=== PATIENT | female | born 1950 | race Caucasian/White ===

== ENCOUNTER 2017-02-17 16:45 | Observation (INO) ==
[2017-02-17] MEDS ORDERED: Nitroglycerin 0.4 MG TAB.SUBL SL ONE (17:01)
--- NOTE | 2017-02-17 17:06 | Emergency Department Note ---
Disposition Clinical Impression: Chest pain Qualifiers: Chest pain type: unspecified Qualified Code(s): R07.9 - Chest pain, unspecified Disposition: Admitted As Inpatient Condition: Fair Forms: ED Satisfaction Letter Time of Disposition: 18:08 Chest Pain HPI - General Chief Complaint: ED Chest Pain Stated Complaint: CP Source: patient Limitations: no limitations Vital Signs Reviewed: Yes Nursing Notes Reviewed: Yes - History of Present Illness HPI Narrative: 66-year-old female past medical history of mitral infarction but is in the emergency department with right-sided neck pain that started at 9 AM today. Patient was not exerting herself with began. Patient does state that last night she was having bilateral arm pain. Patient denies any nausea or diaphoresis. Patient states that the pain cycles every minute and starts in her neck and radiates downward. Severity scale (1-10): 6 - Related Data Home Medications Medication Instructions Recorded Confirmed Acetaminophen [Tylenol] 500 mg PO Q6H PRN 02/17/17 02/17/17 Calcium Carbonate [Calcium] 1,200 mg PO BID 02/17/17 02/17/17 Carvedilol [Carvedilol] 3.125 mg PO BID 02/17/17 02/17/17 Clopidogrel [Plavix] 75 mg PO DAILY 02/17/17 02/17/17 Losartan/HCTZ [Hyzaar 50-12.5 1 each PO DAILY 02/17/17 02/17/17 Tablet] Multivit with Calcium,Iron,Min 1 each PO DAILY 02/17/17 02/17/17 [One Daily Women's] amLODIPine [Norvasc] 5 mg PO DAILY 02/17/17 02/17/17 Allergies Allergy/AdvReac Type Severity Reaction Status Date / Time aspirin Allergy Anaphylaxis Verified 07/02/15 17:50 Penicillins Allergy Anaphylaxis Verified 07/02/15 17:50 levofloxacin [From Levaquin] AdvReac See Verified 07/02/15 17:50 Comments All systems ED: reviewed and negative except as stated. Review of Systems: As Per HPI Constitutional: Denies: fever Cardiovascular: Denies: chest pain Respiratory: Denies: cough, dyspnea Gastrointestinal: Denies: abdominal pain, nausea, vomiting Musculoskeletal: Reports: neck pain Integumentary: Denies: rash Neurological: Denies: headache, numbness, paresthesias Chest Pain PMH - Past Medical History Medical history: Reports: COPD, hypertension, myocardial infarction Psychiatric history: Reports: no psych history [employer] REPA[employer]ER history: Reports: no [employer]BI[employer] REPA[employer]ER history - Social History Smoking Status: Current every day smoker Alcohol use: Reports: none Drug use: Reports: none Physical Exam General: Well Appearing, in no acute distress Head: autraumatic, EOMI, no conjuncitval pallor, no scleral icterus, Mouth: oral mucous membranes moist Neck: neck soft, trachea midline Chest:: Equal chest wall rise Lungs: Normal lungs sounds bilaterally, no wheezes, no respiratory distress Heart: normal heart sounds, normal rate and rhythm, Abdomen: soft, non-tender, no rigidity, no guarding, no rebdound tenderness Lower Extremities: no pedal edema, calves non-tender Integumentary: Skin warm, dry, and intact Neuro: Alert Psych: normal affect, normal mood - General Limitations: no limitations General appearance: alert, in no apparent distress Course Vital Signs Temperature 97.7 F 02/17/17 16:46 Pulse Rate 75 02/17/17 16:46 Respiratory Rate 16 02/17/17 16:46 Blood Pressure 178/89 02/17/17 16:46 O2 Sat by Pulse Oximetry 98 02/17/17 16:46 Temperature 97.7 F 02/17/17 16:46 Pulse Rate 60 02/17/17 17:49 Respiratory Rate 25 02/17/17 17:49 Blood Pressure 150/79 02/17/17 17:49 O2 Sat by Pulse Oximetry 95 02/17/17 17:49 Oxygen Delivery Oxygen Delivery Room Air Chest Pain - MDM Narrative Medical decision making narrative: 66-year-old female with previous history of hypertension, hyperlipidemia, smoker , and myocardial infarction and stent placement in the RCA arrives at the emergency department with 8 hour history of pain radiating through her neck on the right side. Due to patient's previous history of myocardial infarction and stent placement, there is concern for acute coronary syndrome. Electrocardiogram reveals nonspecific ST changes. Patient is mildly hypertensive here. We will administer sublingual nitroglycerin to see if this helps resolve her chest pain. We will also obtain a troponin, chest x-ray, CBC , BMP. Patient's chest x-ray is normal. Troponin is negative. Patient was offered aspirin, but has a known anaphylactic response to it. Patient currently takes Plavix every day and has had her dose this morning already. The patient was administered 0.4 mg sublingual nitroglycerin, which resolved her chest pain completely. Patient was offered admission to the hospital as she has a heart score is 6 and she was willing to come in. I spoke with the hospitalist on the phone and he agreed to accept the admission. Patient's family was at bedside as well. Patient was hemodynamically stable and not in any acute distress at time of admission. Initial blood pressure was 178/89. This dropped after nitroglycerin administration to 165/85. Vital Signs Temperature 97.7 F 02/17/17 16:46 Pulse Rate 75 02/17/17 16:46 Respiratory Rate 16 02/17/17 16:46 Blood Pressure 178/89 02/17/17 16:46 O2 Sat by Pulse Oximetry 98 02/17/17 16:46 Temperature 97.7 F 02/17/17 16:46 Pulse Rate 75 02/17/17 16:46 Respiratory Rate 16 02/17/17 16:46 Blood Pressure 165/85 02/17/17 17:09 O2 Sat by Pulse Oximetry 98 02/17/17 16:46 Oxygen Delivery Oxygen Delivery Room Air Chest X-Ray 02/17/17 17:01 IMPRESSION: Cardiomegaly with COPD. D/ / 02/17/2017 17:34:12 Wesley Cedeño MD / [facility] Interpreting Provider: Wesley Cedeño MD - Medical Records Medical records reviewed: Yes I reviewed the patient's medical records. - Lab Data Lab results reviewed: Yes I reviewed the patient's lab results. Result diagrams: 02/17/17 17:23 02/17/17 17:23 Lab Results 02/17/17 02/17/17 02/17/17 Range/Units 17:23 17:23 17:23 WBC 7.0 (4.3-11.1) K/mcL RBC 4.51 (3.82-4.97) M/mcL Hgb 13.9 (11.5-15.4) g/dL Hct 42.2 (35.3-44.9) % MCV 93.6 (83.0-100.0) fL MCH 30.8 (28.0-33.3) pg MCHC 32.9 (31.6-35.5) g/dL RDW 13.5 (11.5-14.5) % Plt Count 205 (140-400) K/mcL MPV 10.2 (9.4-12.4) fL Immature Gran % 1.4 (0-4) % Seg Neutrophils % 47.0 % Lymphocytes % 36.5 % Monocytes % 10.8 % Eosinophils % 3.6 % Basophils % 0.7 % Neutrophils # 3.3 (1.6-8.9) K/mcL Lymphocytes # 2.5 (0.6-4.6) K/mcL Monocytes # 0.8 (0.0-1.3) K/mcL Eosinophils # 0.3 (0.0-0.6) K/mcL Basophils # 0.1 (0.0-0.2) K/mcL PT 9.9 (9.4-12.1) Seconds INR 0.9 APTT 31.4 (26.0-36.0) Seconds Sodium (136-145) mEq/L Potassium (3.5-4.5) mEq/L Chloride (98-109) mEq/L Carbon Dioxide (19-29) mEq/L BUN (7-20) mg/dL Creatinine (0.57-1.11) mg/dL Est GFR ( Amer) (> 60) Est GFR (Non-Af Amer) (> 60) BUN/Creatinine Ratio (6-26) Glucose (70-99) mg/dL Calculated Osmolality (280-300) Calcium (8.6-10.8) mg/dL Troponin I (0-0.03) ng/mL B-Natriuretic Peptide 35 (0-100) pg/mL 02/17/17 02/17/17 Range/Units 17:23 17:23 WBC (4.3-11.1) K/mcL RBC (3.82-4.97) M/mcL Hgb (11.5-15.4) g/dL Hct (35.3-44.9) % MCV (83.0-100.0) fL MCH (28.0-33.3) pg MCHC (31.6-35.5) g/dL RDW (11.5-14.5) % Plt Count (140-400) K/mcL MPV (9.4-12.4) fL Immature Gran % (0-4) % Seg Neutrophils % % Lymphocytes % % Monocytes % % Eosinophils % % Basophils % % Neutrophils # (1.6-8.9) K/mcL Lymphocytes # (0.6-4.6) K/mcL Monocytes # (0.0-1.3) K/mcL Eosinophils # (0.0-0.6) K/mcL Basophils # (0.0-0.2) K/mcL PT (9.4-12.1) Seconds INR APTT (26.0-36.0) Seconds Sodium 140 (136-145) mEq/L Potassium 4.1 (3.5-4.5) mEq/L Chloride 103 (98-109) mEq/L Carbon Dioxide 27 (19-29) mEq/L BUN 15 (7-20) mg/dL Creatinine 1.01 (0.57-1.11) mg/dL Est GFR ( Amer) > 60 (> 60) Est GFR (Non-Af Amer) 55 L (> 60) BUN/Creatinine Ratio 15 (6-26) Glucose 106 H (70-99) mg/dL Calculated Osmolality 291 (280-300) Calcium 9.9 (8.6-10.8) mg/dL Troponin I 0.00 (0-0.03) ng/mL B-Natriuretic Peptide (0-100) pg/mL - Radiology Data Radiology results reviewed: Yes I reviewed the patient's radiology results. - EKG Data EKG attestation: Yes I reviewed and interpreted this EKG. EKG results narrative: 16:50 Ventricular rate 60 bpm, CO interval 154 ms, QRS duration 146 ms, QT 414 ms, QTC 432 ms, normal axis. Sinus rhythm with a ventricular rate of 60 bpm. There is a right bundle branch block. New T-wave inversions in the septal leads. T-wave flattening in V5 and V6. This is new from an electrocardiogram performed on June 11, 2016. Heart Score - Score History: Moderately Suspicious EKG: Non Specific repolarisation Disturbance Age: Greater than 65 Risk Factors: Equal/Greater than 3 risk factor or history of atherosclerotic disease Troponin: Less than normal limit HEART Score Total: 6
[2017-02-17] MEDS ORDERED: 0.9 % Sodium Chloride 1,000 ML IVC ONE (17:10)
[2017-02-17 17:33] LABS: Basophils # 0.1 K/mcL (0.0-0.2); Basophils % 0.7 %; Eosinophils # 0.3 K/mcL (0.0-0.6); Eosinophils % 3.6 %; Hematocrit 42.2 % (35.3-44.9); Hemoglobin 13.9 g/dL (11.5-15.4); Immature Granulocytes % 1.4 % (0-4); Lymphocytes # 2.5 K/mcL (0.6-4.6); Lymphocytes % 36.5 %; Mean Corpuscular HGB Conc 32.9 g/dL (31.6-35.5); Mean Corpuscular Hemoglobin 30.8 pg (28.0-33.3); Mean Corpuscular Volume 93.6 fL (83.0-100.0); Mean Platelet Volume 10.2 fL (9.4-12.4); Monocytes # 0.8 K/mcL (0.0-1.3); Monocytes % 10.8 %; Neutrophils # 3.3 K/mcL (1.6-8.9); Platelet Count 205 K/mcL (140-400); Red Blood Count 4.51 M/mcL (3.82-4.97); Red Cell Distribution Width 13.5 % (11.5-14.5)
[2017-02-17 17:39] LABS: INR 0.9; Prothrombin Time 9.9 Seconds (9.4-12.1)
[2017-02-17 17:42] LABS: Activated Partial Thrombo Time 31.4 Seconds (26.0-36.0)
--- NOTE | 2017-02-17 17:43 | Emergency Department Note ---
START Narrative - START START: I examined this patient and my medical decision-making was reviewed with the Resident Physician. I agree with the documented findings, disposition and treatment plan as described except to the extent set forth below. 66 yo F here for chest pain hx of one stent +CAD nitro helped with pain. plan to admit ekg is ok cxr neg labs stable
[2017-02-17 17:46] LABS: BUN/Creatinine Ratio 15 (6-26); Blood Urea Nitrogen 15 mg/dL (7-20); Calcium 9.9 mg/dL (8.6-10.8); Carbon Dioxide 27 mEq/L (19-29); Chloride 103 mEq/L (98-109); Glucose 106 mg/dL (70-99); Osmolality,Calculated 291 (280-300); Potassium 4.1 mEq/L (3.5-4.5); Sodium 140 mEq/L (136-145); eGFR For African Americans > 60 (> 60); eGFR For Non-African Americans 55 (> 60)
[2017-02-17] MEDS ORDERED: Acetaminophen 325 MG TABLET PO PRN (20:36)
[2017-02-17] MEDS ORDERED: Ondansetron 4 MG/2 ML VIAL IVP PRN (20:36)
[2017-02-17] MEDS ORDERED: Naloxone 0.4 MG/ML INJ IVP PRN (20:36)
[2017-02-17] MEDS ORDERED: *HR* Morphine 2 MG/ML SYRINGE IVP PRN (20:36)
[2017-02-17] MEDS ORDERED: Nitroglycerin 0.4 MG TAB.SUBL SL PRN (20:39)
[2017-02-17] MEDS ORDERED: Ipratropium/Albuterol Neb 3 ML IH PRN ×2 (20:39→20:50)
--- NOTE | 2017-02-17 20:42 | Internal Med History&Physical ---
Date of Encounter: 02/17/17 Time of Encounter: 20:39 Assessment and Plan (1) Chest pain Current visit: Yes Status: Acute Order stress test, monitor troponins, continue telemetry Consider cardiology consult if the stress test is abnormal, continue Plavix, hold carvedilol for stress test Allergic to aspirin Nitroglycerin and morphine for pain Check lipid panel in the morning Omeprazole for GI prophylaxis and Lovenox for DVT prophylaxis. The patient will be admitted for observation. Full code. Time spent on this admission 40 minutes. Qualifiers: Chest pain type: unspecified Qualified Code(s): R07.9 - Chest pain, unspecified (2) Hypertension Current visit: Yes Status: Acute Continue home meds May start hydralazine IV as needed Qualifiers: Hypertension type: essential hypertension Qualified Code(s): I10 - Essential (primary) hypertension (3) CAD (coronary artery disease) Current visit: Yes Status: Acute Continue Plavix Qualifiers: Coronary Disease-Associated Artery/Lesion type: [place] artery [place] vs. transplanted heart: [place] heart Associated angina: angina presence unspecified Qualified Code(s): I25.10 - Atherosclerotic heart disease of [place] coronary artery without angina pectoris (4) COPD (chronic obstructive pulmonary disease) Current visit: Yes Status: Acute DuoNeb nebs as needed Qualifiers: COPD type: unspecified COPD Qualified Code(s): J44.9 - Chronic obstructive pulmonary disease, unspecified (5) Tobacco abuse Current visit: Yes Status: Acute Smoking cessation counseling given for 5 minutes, nicotine patch ordered Internal Medicine - H&P: HPI Chief complaint: Chest pain Admitted From: Emergency Dept History of present illness: Ms. Rodríguez is a 66 year old female with a past medical history of CAD status post stents, hypertension, COPD not oxygen dependent and tobacco use who came to the emergency room complaining of chest pain that started on the right side of her neck approximately 9 AM she was at rest. Initially, it was a 6 out of 10 and improved with the use of nitroglycerin, the discomfort is still present she says it is not completely similar to the prior cardiac event that she had before. It comes in cycles every minute. EKG shows a prior right bundle branch block, chest x-ray shows cardiomegaly and COPD features. She takes Plavix as she is allergic to aspirin. Denies any other complaints other than the pain radiating to both arms. Blood pressure is 178/89 Past Med Surg Social Fam HX - Past Medical History Medical history: COPD (Not oxygen dependent), coronary artery disease (History of stents), hypertension, myocardial infarction, other (Tobacco use, pancreatic divisum, history of right bundle branch block) Psychiatric history: no psych history - Past Surgical History Surgical History: cholecystectomy, other (Pancreatic surgery for pancreas divisum, , cervical surgery, cardiac catheterization) - Social History Smoking Status: Current every day smoker Packs per day: Half a pack every other day Smokeless Tobacco Status: No Alcohol use: none Drug use: none - Additional Family History Additional family history: Brother with an NV at the age of 65, brother with CVA Internal Medicine - H&P: Meds Acetaminophen [Tylenol] 500 mg PO Q6H PRN 02/17/17 [History] Calcium Carbonate [Calcium] 1,200 mg PO BID 02/17/17 [History] Carvedilol [Carvedilol] 3.125 mg PO BID 02/17/17 [History] Clopidogrel [Plavix] 75 mg PO DAILY 02/17/17 [History] Losartan/HCTZ [Hyzaar 50-12.5 Tablet] 1 each PO DAILY 02/17/17 [History] Multivit with Calcium,Iron,Min [One Daily Women's] 1 each PO DAILY 02/17/17 [ History] amLODIPine [Norvasc] 5 mg PO DAILY 02/17/17 [History] 3 Allergy/AdvReac Type Severity Reaction Status Date / Time aspirin Allergy Anaphylaxis Verified 07/02/15 17:50 Penicillins Allergy Anaphylaxis Verified 07/02/15 17:50 levofloxacin [From Levaquin] AdvReac See Verified 07/02/15 17:50 Comments All Systems PM: A 10-system review of systems was performed and is negative for pertinent findings except as documented above in the HPI. Review of systems: No shortness of breath, no abdominal pain, fevers or chills, no dysuria. - Constitutional Vitals: Temp Pulse Resp BP Pulse Ox 97.9 F 75 16 123/71 92 02/17/17 19:49 02/17/17 19:49 02/17/17 19:49 02/17/17 19:49 02/17/17 19:49 General appearance: Present: A&O X 3 - Head Head exam: Present: atraumatic, normocephalic - Eye Eye exam: Present: PERRL, conjuntiva pink, sclera anicteric Pupils: Present: PERRL - Neck Neck exam general surgery: Present: supple, trachea midline. Absent: lymphadenopathy - Respiratory Respiratory exam: Present: CTAB. Absent: accessory muscle use, rales, rhonchi, wheezes - Cardiovascular Cardiovascular exam: Present: RRR, +S1, +S2. Absent: diastolic murmur, gallop, rubs, systolic murmur - GI/Abdominal GI/Abdominal exam: Present: normal bowel sounds, soft, no peritoneal signs. Absent: distended, tenderness - Extremities Exam Extremities exam: Present: warm, radial pulses palpable and symmetrical. Absent : calf tenderness, cyanotic, pedal edema - Neurological Exam Neurological exam: Present: CN II-XII intact, oriented X3, no focal deficits. Absent: pronater drift, facial droop, speech deficit - Skin Skin exam: Present: dry, intact Internal Med - H&P Results - Labs CBC & Chem 7: 02/17/17 17:23 02/17/17 17:23
[2017-02-17] MEDS: *HR* Enoxaparin 40 MG/0.4 ML SYRINGE SQ SCH (21:48)
[2017-02-18 03:36] LABS: BUN/Creatinine Ratio 16 (6-26); Blood Urea Nitrogen 15 mg/dL (7-20); Calcium 9.5 mg/dL (8.6-10.8); Carbon Dioxide 27 mEq/L (19-29); Chloride 109 mEq/L (98-109); Chol/HDL Ratio 2.7 (0-4.9); Cholesterol 161 mg/dL (< 200); Glucose 109 mg/dL (70-99); HDL Cholesterol 59 mg/dL (40-59); LDL Cholesterol,Calculated 88 mg/dL (0-99); Osmolality,Calculated 297 (280-300); Sodium 143 mEq/L (136-145); Triglycerides 71 mg/dL (< 150); eGFR For African Americans > 60 (> 60); eGFR For Non-African Americans 58 (> 60)
[2017-02-18] MEDS: *HR* Enoxaparin 40 MG/0.4 ML SYRINGE SQ SCH (06:00)
[2017-02-18] MEDS ORDERED: Regadenoson 0.4 MG/5 ML SYRINGE IVP ONE (06:02)
[2017-02-18] MEDS: Nicotine 14 MG PATCH.TD24 TD SCH ×2 (06:02→09:53)
--- NOTE | 2017-02-18 08:06 | Electrocardiograph Report ---
[place] [id number] Test Date: 2017-02-17 Pat Name: Geena Rodríguez Department: 104 Room: 3B36 Gender: F Gold Marker: JOVANA : 1950 Requested By: Dia Alfonso Order Number: [id number] Reading MD: Maritza Nails Measurements Intervals [place] Rate: 68 P: 49 VT: 154 QRS: 114 QRSD: 146 T: -11 QT: 414 QTc: 432 Interpretive Statements SINUS RHYTHM RIGHT BUNDLE BRANCH BLOCK Electronically Signed On 02-18-2017 8:05:12 EDT by Maritza Nails
[2017-02-18] MEDS ORDERED: amLODIPine 5 MG TABLET PO SCH (09:00)
[2017-02-18] MEDS ORDERED: Losartan/HCTZ 50-12.5 TABLET PO SCH (09:00)
--- NOTE | 2017-02-18 11:53 | Discharge Summary ---
Date of Encounter: 02/18/17 Time of Encounter: 11:50 - Discharge Diagnosis (1) Chest pain Priority: Primary Status: Acute Qualifiers: Chest pain type: unspecified Qualified Code(s): R07.9 - Chest pain, unspecified (2) Hypertension Priority: Secondary Status: Acute Qualifiers: Hypertension type: essential hypertension Qualified Code(s): I10 - Essential (primary) hypertension (3) CAD (coronary artery disease) Priority: Secondary Status: Acute Qualifiers: Coronary Disease-Associated Artery/Lesion type: [place] artery [place] vs. transplanted heart: [place] heart Associated angina: angina presence unspecified Qualified Code(s): I25.10 - Atherosclerotic heart disease of [place] coronary artery without angina pectoris (4) COPD (chronic obstructive pulmonary disease) Priority: Secondary Status: Acute Qualifiers: COPD type: unspecified COPD Qualified Code(s): J44.9 - Chronic obstructive pulmonary disease, unspecified (5) Tobacco abuse Priority: Secondary Status: Acute - Discharge Medications Prescriptions: Nicotine Patch [Nicoderm] 14 mg TD DAILY #30 patch.[email or web address] Home Medications: Acetaminophen [Tylenol] 500 mg PO Q6H PRN 02/17/17 [History] Calcium Carbonate [Calcium] 1,200 mg PO BID 02/17/17 [History] Carvedilol 3.125 mg PO BID 02/17/17 [History] Clopidogrel [Plavix] 75 mg PO DAILY 02/17/17 [History] Losartan/HCTZ [Hyzaar 50-12.5 Tablet] 1 each PO DAILY 02/17/17 [History] Multivit with Calcium,Iron,Min [One Daily Women's] 1 each PO DAILY 02/17/17 [ History] amLODIPine [Norvasc] 5 mg PO DAILY 02/17/17 [History] Nicotine Patch [Nicoderm] 14 mg TD DAILY #30 patch.[email or web address] 02/18/17 [Rx] Allergies/Adverse Reactions: 3 Allergy/AdvReac Type Severity Reaction Status Date / Time aspirin Allergy Anaphylaxis Verified 07/02/15 17:50 Penicillins Allergy Anaphylaxis Verified 07/02/15 17:50 levofloxacin [From Levaquin] AdvReac See Verified 07/02/15 17:50 Comments Procedures/tests Complete & Pending: Procedures Performed prior 72 hours Category Date Time Status NM gilson perf SPECT multi [NM] Routine Exams 02/17/17 20:35 Taken SP pharm nuclear stress Routine Y 02/18/17 07:30 Completed Date of admission: 02/17/17 18:18 Primary care physician: Olayinka Faye MD - Patient Status Disposition: Home, Self-Care Condition: Good Overall status at discharge: patient is back to baseline - Discharge Instructions Follow Up With: Olayinka Faye MD [Primary Care Provider] - - Diet and Activity Activity: increase activity as tolerated Diet: low salt diet Hospital course: Ms. Rodríguez is a 66 year old female with a past medical history of CAD status post stents, hypertension, COPD not oxygen dependent and tobacco use who came to the emergency room complaining of chest pain that started on the right side of her neck approximately 9 AM she was at rest. Initially, it was a 6 out of 10 and improved with the use of nitroglycerin, the discomfort is still present she says it is not completely similar to the prior cardiac event that she had before. She was admitted in the hospital and placed her on desk monitor. checked her serial troponin which were negative and no acute EKG changes noticed. Due to her prior [place] and Family history she is at high risk fro ACS so did stress test today, which came back as negative for any ischemia. So will d/ c pt home today in stable condition. Recommend to stop / quit smoking - Time Spent with Patient Total time spent providing and/or coordinating discharge services: - Constitutional Vitals: Temp Pulse Resp BP Pulse Ox 97.6 F 63 18 117/58 95 02/18/17 02:46 02/18/17 02:46 02/18/17 02:46 02/18/17 02:46 02/18/17 02:46 General appearance: Present: A&O X 3, no acute distress, answers questions appropriately - Head Head exam: Present: atraumatic, normal inspection - Neck Neck exam general surgery: Present: supple - Respiratory Respiratory exam: Present: CTAB, wheezes. Absent: respiratory distress, rhonchi - Cardiovascular Cardiovascular exam: Present: RRR, +S1, +S2 - GI/Abdominal GI/Abdominal exam: Present: normal bowel sounds, soft. Absent: rebound, rigid, tenderness - Extremities Exam Extremities exam: Absent: pedal edema, tenderness - Back Exam Back exam: Absent: CVA tenderness (L), CVA tenderness (R) - Neurological Exam Neurological exam: Present: alert, oriented X3
[2017-02-18 11:54] VITALS: BP 140/72
== END 2017-02-18 13:11 | disposition home or self-care (01) ==
LOC: EMEROO 16:45 → 3BNU 16:45
PROVIDERS: ADMIT Internal Medicine; ATTEND Registered Nurse

== ENCOUNTER 2018-08-05 20:38 | Inpatient (IN) ==
[2018-08-05] MEDS ORDERED: 0.9 % Sodium Chloride 1,000 ML IVC ONE (20:51)
--- NOTE | 2018-08-05 21:15 | Emergency Department Note ---
Disposition Clinical Impression: Elevated d-dimer, Atrial fibrillation with RVR Disposition: Admitted As Inpatient Condition: Undetermined Time of Disposition: 00:20 General Adult HPI - General Chief complaint: ED Chest Pain Stated complaint: Chest Pain Time Seen by Provider: 08/05/18 20:46 Source: patient Mode of arrival: ambulatory Limitations: no limitations Nursing Notes Reviewed: Yes Vital Signs Reviewed: Yes - History of Present Illness HPI Narrative: Patient is a 67-year-old presenting to [facility] ED for a one half hour history of palpitations. Patient states that her discomfort began approximately quarter till 8 tonight with feeling of her heart racing and left jaw pain. Patient states that her left jaw pain has since subsided but that she still experiences a sensation of her heart racing. Patient is found to be in atrial fibrillation with rapid ventricular response with ventricular rate of 162 bpm. Patient has a known history of atrial fibrillation as well as. Myocardial infarction with one stent placement. Patient states that she follows with Dr. Martin at [facility] and that there are no additional concerns or complaints this time. Pain Scale: 0 - Related Data Home Medications Medication Instructions Recorded Confirmed Clopidogrel [Plavix] 75 mg PO DAILY 01/20/18 08/05/18 amLODIPine [Norvasc] 5 mg PO DAILY 01/20/18 08/05/18 Carvedilol [Coreg] 1 tab PO BIDWM 08/05/18 08/05/18 Losartan/Hydrochlorothiazide 1 each PO DAILY 08/05/18 08/05/18 [Losartan-Hctz 50-12.5 mg Tab] Allergies Allergy/AdvReac Type Severity Reaction Status Date / Time aspirin Allergy Anaphylaxis Verified 08/05/18 20:42 lisinopril Allergy Cough Verified 08/05/18 20:42 Penicillins Allergy Anaphylaxis Verified 08/05/18 20:42 levofloxacin [From Levaquin] AdvReac See Verified 08/05/18 20:42 Comments Past Medical History - Past Medical History Medical history: Reports: COPD, coronary artery disease, hyperlipidemia, hypertension, myocardial infarction, osteoporosis, other Surgical history: Reports: appendectomy, , cholecystectomy, orthopedic, other Psychiatric history: Reports: no psych history [employer]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 Absent: scleral icterus - Neck Neck exam: Present: normal inspection, trachea midline. Absent: thyromegaly - Chest Chest inspection: Present: normal inspection, symmetric chest wall rise - Respiratory Respiratory exam: Present: normal lung sounds bilaterally. Absent: respiratory distress, wheezes, stridor, accessory muscle use, prolonged expiratory phase - Cardiovascular Cardiovascular exam: Present: regular rate, normal rhythm, normal heart sounds, +S1, +S2. Absent: systolic murmur, diastolic murmur, JVD, +S3, +S4 - Abdominal Exam Abdominal exam: Present: soft, Non-Tender, normal bowel sounds. Absent: distention, guarding, rebound, rigidity - Extremities Exam Extremities exam: Present: normal inspection. Absent: pedal edema - Neurological Exam Neurological exam: Present: alert, oriented X3 - Psychiatric Psychiatric exam: Present: normal affect, normal mood - Skin Skin exam: Present: warm, dry, intact, normal color. Absent: rash, cyanosis, diaphoresis, erythema, pallor, mottled Course Course Narrative: We will begin calcium gluconate and Cardizem drip for the management of A. fib relation with rapid ventricular response. Vital Signs Temperature 97.8 F 08/05/18 20:43 Pulse Rate 162 08/05/18 20:43 Respiratory Rate 20 08/05/18 20:43 Blood Pressure 135/76 08/05/18 20:43 O2 Sat by Pulse Oximetry 95 08/05/18 20:43 Temperature 97.8 F 08/05/18 20:43 Pulse Rate 110 08/05/18 23:04 Respiratory Rate 22 08/05/18 23:04 Blood Pressure 105/71 08/05/18 23:04 O2 Sat by Pulse Oximetry 97 08/05/18 23:04 Oxygen Delivery Oxygen Delivery Room Air Medical Decision Making - MDM Narrative Medical decision making narrative: Patient noted to hospitalist medicine service for elevated d-dimer as well as atrial fibrillation with rapid ventricular response. - Lab Data Lab results reviewed: Yes I reviewed the patient's lab results. Result diagrams: 08/05/18 20:51 08/05/18 20:51 Lab Results 04/18/19 04/18/19 04/18/19 Range/Units 20:51 20:51 20:51 WBC 9.6 (4.3-11.1) K/mcL RBC 4.61 (3.82-4.97) M/mcL Hgb 14.6 (11.5-15.4) g/dL Hct 42.7 (35.3-44.9) % MCV 92.6 (83.0-100.0) fL MCH 31.7 (28.0-33.3) pg MCHC 34.2 (31.6-35.5) g/dL RDW 13.6 (11.5-14.5) % Plt Count 270 (140-400) K/mcL MPV 10.5 (9.4-12.4) fL Immature Gran % 0.3 (0-4) % Seg Neutrophils % 61.3 % Lymphocytes % 27.8 % Monocytes % 8.5 % Eosinophils % 1.5 % Basophils % 0.6 % Neutrophils # 5.9 (1.6-8.9) K/mcL Lymphocytes # 2.7 (0.6-4.6) K/mcL Monocytes # 0.8 (0.0-1.3) K/mcL Eosinophils # 0.1 (0.0-0.6) K/mcL Basophils # 0.1 (0.0-0.2) K/mcL PT 11.5 (9.4-12.1) Seconds INR 1.0 APTT 33.7 (26.0-36.0) Seconds D-Dimer 1469 H (0-500) ng/mLFEU Heparin Anti-Xa, Unfract (0.30-0.70) IU/mL Sodium 137 (136-145) mEq/L Potassium 3.3 L (3.5-5.1) mEq/L Chloride 100 (98-107) mEq/L Carbon Dioxide 25 (23-29) mEq/L BUN 18 (8-23) mg/dL Creatinine 1.28 H (0.60-1.20) mg/dL Est GFR ( Amer) 50 L (> 60) Est GFR (Non-Af Amer) 41 L (> 60) BUN/Creatinine Ratio 14 (6-26) Glucose 219 H (70-105) mg/dL Calculated Osmolality 293 (280-300) Calcium 10.4 H (8.6-10.3) mg/dL Magnesium 1.8 (1.6-2.6) mg/dL Troponin I < 0.03 (< 0.04) ng/mL TSH 4.551 (0.340-5.600) mcIU/mL Urine Color (Yellow) Urine Clarity (Clear) Urine pH (5.0-8.0) pH Units Ur Specific [place] (1.010-1.025) Urine Protein (Neg-Trace) mg/dL Urine Glucose (UA) (Normal) mg/dL Urine Ketones (Negative) mg/dL Urine Blood (Negative) Urine Nitrite (Negative) Urine Bilirubin (Negative) Urine Urobilinogen (Normal) mg/dL Ur Leukocyte Esterase (Negative) Urine Microscopic RBC (0-3) per hpf Urine Microscopic WBC (0-3) per hpf Ur Squamous Epith Cells (None-Few) per lpf Urine Bacteria (None-Few) per hpf Hyaline Casts (None-Few) per lpf Ur Culture Indicated? (NO) 08/05/18 08/05/18 Range/Units 21:13 23:40 WBC (4.3-11.1) K/mcL RBC (3.82-4.97) M/mcL Hgb (11.5-15.4) g/dL Hct (35.3-44.9) % MCV (83.0-100.0) fL MCH (28.0-33.3) pg MCHC (31.6-35.5) g/dL RDW (11.5-14.5) % Plt Count (140-400) K/mcL MPV (9.4-12.4) fL Immature Gran % (0-4) % Seg Neutrophils % % Lymphocytes % % Monocytes % % Eosinophils % % Basophils % % Neutrophils # (1.6-8.9) K/mcL Lymphocytes # (0.6-4.6) K/mcL Monocytes # (0.0-1.3) K/mcL Eosinophils # (0.0-0.6) K/mcL Basophils # (0.0-0.2) K/mcL PT (9.4-12.1) Seconds INR APTT (26.0-36.0) Seconds D-Dimer (0-500) ng/mLFEU Heparin Anti-Xa, Unfract 0.01 L (0.30-0.70) IU/mL Sodium (136-145) mEq/L Potassium (3.5-5.1) mEq/L Chloride (98-107) mEq/L Carbon Dioxide (23-29) mEq/L BUN (8-23) mg/dL Creatinine (0.60-1.20) mg/dL Est GFR ( Amer) (> 60) Est GFR (Non-Af Amer) (> 60) BUN/Creatinine Ratio (6-26) Glucose (70-105) mg/dL Calculated Osmolality (280-300) Calcium (8.6-10.3) mg/dL Magnesium (1.6-2.6) mg/dL Troponin I (< 0.04) ng/mL TSH (0.340-5.600) mcIU/mL Urine Color Yellow (Yellow) Urine Clarity Clear (Clear) Urine pH 6.0 (5.0-8.0) pH Units Ur Specific [place] 1.028 H (1.010-1.025) Urine Protein 30 H (Neg-Trace) mg/dL Urine Glucose (UA) Normal (Normal) mg/dL Urine Ketones Trace H (Negative) mg/dL Urine Blood Trace H (Negative) Urine Nitrite Negative (Negative) Urine Bilirubin Small H (Negative) Urine Urobilinogen Normal (Normal) mg/dL Ur Leukocyte Esterase Small H (Negative) Urine Microscopic RBC 15-30 H (0-3) per hpf Urine Microscopic WBC 5-15 H (0-3) per hpf Ur Squamous Epith Cells Many H (None-Few) per lpf Urine Bacteria None Seen (None-Few) per hpf Hyaline Casts None Seen (None-Few) per lpf Ur Culture Indicated? NO. A (NO) - Radiology Data Radiology results reviewed: Yes I reviewed the patient's radiology results. Chest X-Ray 08/05/18 20:51 IMPRESSION: No evidence of acute process in the chest. D/ / Hugo Mccloud / Hugo Mccloud Interpreting Provider: Hugo Mccloud - EKG Data EKG #1 EKG attestation: Yes I reviewed and interpreted this EKG. EKG results narrative: Patient's EKG shows atrial fibrillation with rapid ventricular response with ventricular rate of 162 bpm, QRS duration of 150 ms, QT/QTc interval of 305/359 ms respectively. There are ST segment depressions noted in these 3 through V6 versus deep S waves, there appear to be no ST segment elevations, or any other signs of acute ischemic change. EKG performed today appears to be generally consistent with prior EKG performed on 02/13/2018. Attestation Statement - Attestation Attestation: I, Holden Alfonso, examined this patient and my medical decision-making was reviewed with the CANOE MAKER/PA/Advanced Practice Nurse/Resident Physician. I agree with the documented findings, disposition and treatment plan as described except to the extent set forth below. 67-year-old female presents emergency Department with concerns of palpitations. Patient states she was resting when she had acute onset of palpitations and then started to have left-sided jaw pain. Patient states she had a history of palpitations in the past but never really had a formal diagnosis of atrial fibrillations. Patient does not take anticoagulation other than Plavix which she takes for a cardiac stent. Patient has a history of previous WI. Patient denies fever, chills, vomiting, diarrhea, illicit drug use or changes in her medications. Patient is awake alert and answering questions appropriately during exam in the emergency department. Her heart rate fluctuated from 1:15 to 160 during my evaluation. She was started on Cardizem and heparin in the emergency department. She states that she is allergic to aspirin. Patient had elevation in her d-dimer however her kidney function does not support having CT at this time. She will be started on full dose heparin secondary to her A. fib and hopefully her renal function will improve and she can obtain further imaging of her chest tomorrow. Patient will be admitted to the hospitalist for further care and evaluation.
[2018-08-05 21:20] LABS: Basophils # 0.1 K/mcL (0.0-0.2); Basophils % 0.6 %; Eosinophils # 0.1 K/mcL (0.0-0.6); Eosinophils % 1.5 %; Hematocrit 42.7 % (35.3-44.9); Hemoglobin 14.6 g/dL (11.5-15.4); Immature Granulocytes % 0.3 % (0-4); Lymphocytes # 2.7 K/mcL (0.6-4.6); Lymphocytes % 27.8 %; Mean Corpuscular HGB Conc 34.2 g/dL (31.6-35.5); Mean Corpuscular Hemoglobin 31.7 pg (28.0-33.3); Mean Corpuscular Volume 92.6 fL (83.0-100.0); Mean Platelet Volume 10.5 fL (9.4-12.4); Monocytes # 0.8 K/mcL (0.0-1.3); Monocytes % 8.5 %; Neutrophils # 5.9 K/mcL (1.6-8.9); Platelet Count 270 K/mcL (140-400); Red Blood Count 4.61 M/mcL (3.82-4.97); Red Cell Distribution Width 13.6 % (11.5-14.5); Segmented Neutrophils % 61.3 %
[2018-08-05 21:28] LABS: Prothrombin Time 11.5 Seconds (9.4-12.1)
[2018-08-05 21:30] LABS: Bilirubin,Urine Small (Negative); Blood,Urine Trace (Negative); Clarity,Urine Clear (Clear); Color,Urine Yellow (Yellow); Glucose,Urine (UA) Normal (Normal); Ketones,Urine Trace mg/dL (Negative); Leukocyte Esterase,Urine Small (Negative); Nitrite,Urine Negative (Negative); Protein,Urine 30 mg/dL (Neg-Trace); Specific Gravity,Urine 1.028 (1.010-1.025); Urobilinogen,Urine Normal (Normal)
[2018-08-05 21:31] LABS: Activated Partial Thrombo Time 33.7 Seconds (26.0-36.0)
[2018-08-05 21:36] LABS: Bacteria,Urine None Seen per hpf (None-Few); Hyaline Casts,Urine None Seen per lpf (None-Few); RBC,Urine 15-30 per hpf (0-3); Squamous Epithelial Cell,Urine Many per lpf (None-Few)
[2018-08-05] MEDS ORDERED: Isovue-370 500 ML BOTTLE IVP ONE (21:38)
[2018-08-05] MEDS ORDERED: *HR* Heparin 5,000 UNIT/ML VIAL IVP ONE (21:59)
[2018-08-05] MEDS ORDERED: *HR* Heparin 5,000 UNIT/ML VIAL IVP PRN ×2 (21:59)
[2018-08-05 22:00] LABS: BUN/Creatinine Ratio 14 (6-26); Blood Urea Nitrogen 18 mg/dL (8-23); Calcium 10.4 mg/dL (8.6-10.3); Carbon Dioxide 25 mEq/L (23-29); Chloride 100 mEq/L (98-107); Glucose 219 mg/dL (70-105); Magnesium 1.8 mg/dL (1.6-2.6); Osmolality,Calculated 293 (280-300); Potassium 3.3 mEq/L (3.5-5.1); Sodium 137 mEq/L (136-145); Thyroid Stimulating Hormone 4.551 mcIU/mL (0.340-5.600); Troponin I < 0.03 ng/mL (< 0.04); eGFR For Non-African Americans 41 (> 60)
[2018-08-05] MEDS ORDERED: Heparin 25,000 UNIT/250 ML D5W 25,000 UNIT/250 ML IV.SOLN IVC SCH (22:00)
[2018-08-06] MEDS ORDERED: 0.9 % Sodium Chloride 1,000 ML IVC SCH (02:45)
[2018-08-06] MEDS ORDERED: Naloxone 0.4 MG/ML INJ IVP PRN (02:45)
[2018-08-06] MEDS ORDERED: Acetaminophen 325 MG TABLET PO PRN (02:45)
--- NOTE | 2018-08-06 03:55 | Internal Med History&Physical ---
Date of Encounter: 08/06/18 Time of Encounter: 02:15 Internal Medicine - H&P: HPI Chief complaint: palpitations; chest/neck tightness Admitted From: Emergency Dept Plans for Post Hospital Care: Home History of present illness: Ms. Rodríguez is a 67 year old female who presents to the ER with sudden onset of palpitations, racing heartbeats, and then followed by chest tightness and pain in her neck. Upon arrival to the ER, she was found to have evidence of atrial fibrillation with rapid ventricular response. She was given a dose of Cardizem with improvement in rate control. She was also found to have evidence of acute kidney injury and a markedly elevated d-dimer. She had some vague chest pain and shortness of breath. Because of acute kidney injury, CTA was not done and she was started on heparin drip empirically for the possibility of PE. Once her kidney function resolves, she can likely proceed with CTA of the chest. Upon my assessment of the patient, she has no further chest tightness, neck tightness, shortness of breath, palpitations, or pain radiating toward the neck. She denies any heart rhythm problems. She does have history of coronary disease and had an WI several years ago. She denies any history of blood clots. Family history is negative for blood clots. However, she does smoke. She will need workup for possible PE, but I will hold off ordering CT of the chest until her kidney function recovers. Past Med Surg Social Fam HX - Past Medical History Attestation: Yes The following information was validated with the patient. Source: patient, old records reviewed, obtained from family Medical history: COPD, coronary artery disease, hyperlipidemia, hypertension, m yocardial infarction, osteoporosis, other Additional medical history: one stent placed. Psychiatric history: no psych history - Past Surgical History Surgical History: appendectomy, , cholecystectomy, orthopedic, other Additional surgical history: right shoulder rotator cuff , two surgeries on neck. - Social History Smoking Status: Current every day smoker Smokeless Tobacco Status: No Alcohol use: none Drug use: none Current living situation: Home, With Family Activity Level: Independent ambulation Recent Out of Country Travel Within the Last 8 Weeks: No - Family History Brother Living Status: Still Living Hx Family Cardiac Disorders: Yes ([place]) Internal Medicine - H&P: Meds Clopidogrel [Plavix] 75 mg PO DAILY 01/20/18 [History] amLODIPine [Norvasc] 5 mg PO DAILY 01/20/18 [History] Carvedilol [Coreg] 1 tab PO BIDWM 08/05/18 [History] Losartan/Hydrochlorothiazide [Losartan-Hctz 50-12.5 mg Tab] 1 each PO DAILY 08/05/18 [History] Allergy/AdvReac Type Severity Reaction Status Date / Time aspirin Allergy Anaphylaxis Verified 08/05/18 20:42 lisinopril Allergy Cough Verified 08/05/18 20:42 Penicillins Allergy Anaphylaxis Verified 08/05/18 20:42 levofloxacin [From Levaquin] AdvReac See Verified 08/05/18 20:42 Comments - Constitutional Constitutional: no chills, no falls, no night sweats - EENT Eyes: no blurry vision, no change in vision Ears: no ear pain, no tinnitus Nose, mouth and throat: no nasal congestion, no sinus pressure, no sore throat - Cardiovascular Cardiovascular ROS IM: chest pain, dyspnea, irregular heart rhythm, li ghtheadedness, palpitations, no orthopnea, no paroxysmal nocturnal dyspnea, no syncope - Respiratory Respiratory: no cough, no hemoptysis, no chest congestion, no excessive phlegm production, no change in phlegm color - Gastrointestinal Gastrointestinal: no abdominal pain, no diarrhea, no hematemesis, no hematochezia, no melena, no nausea, no vomiting - Genitourinary Genitourinary: no dysuria, no flank pain, no hematuria - Musculoskeletal Musculoskeletal ROS IM: no arthralgias, no back pain - Integumentary Integumentary IM: no rash, no jaundice - Neurological Neurological ROS: no disequilibrium, no dizziness, no frequent falls, no headache(s) - Psychiatric Psychiatric: no anxiety, no depression - Endocrine Endocrine IM: no cold intolerance, no heat intolerance, no polydipsia, no polyuria - Allergic/Immunologic Allergic/Immunologic: no GI upset with certain foods - Constitutional Vitals: Temp Pulse Resp BP Pulse Ox 98 F 113 18 110/73 93 08/06/18 01:26 08/06/18 01:26 08/06/18 01:26 08/06/18 01:26 08/06/18 01:26 General appearance: Present: cooperative, A&O X 3, pleasant, answers questions appropriately Exam: chest pain free - Head Head exam: Present: atraumatic, normal inspection - Eye Eye exam: Present: EOMI, PERRL. Absent: scleral icterus Pupils: Present: normal accommodation - ENT ENT exam: Present: mucous membranes dry, normal exam, normal oropharynx - Neck Neck exam general surgery: Present: full ROM, supple, trachea midline. Absent: tenderness, nuchal rigidity, thyromegaly - Respiratory Respiratory exam: Present: chest wall tenderness, CTAB. Absent: rales, rhonchi, wheezes - Cardiovascular Cardiovascular exam: Present: distant heart sounds, irregular rhythm, +S1, +S2. Absent: diastolic murmur, systolic murmur - GI/Abdominal GI/Abdominal exam: Present: normal bowel sounds, soft. Absent: guarding, hepatomegaly, mass, rebound, splenomegaly, tenderness - Extremities Exam Extremities exam: Present: full ROM, normal capillary refill, warm, radial pulses palpable and symmetrical. Absent: calf tenderness, joint swelling, pedal edema, tenderness - Back Exam Back exam: Absent: CVA tenderness (L), CVA tenderness (R) - Neurological Exam Neurological exam: Present: alert, CN II-XII intact, oriented X3, no focal deficits, strengths equal and symetr throughout - Psychiatric Psychiatric exam: Present: normal affect, normal mood - Skin Skin exam: Present: dry, intact, warm Internal Med - H&P Results - Labs CBC & Chem 7: 08/05/18 20:51 08/05/18 20:51 Labs: Short CBC 08/05/18 Range/Units 20:51 WBC 9.6 (4.3-11.1) K/mcL Hgb 14.6 (11.5-15.4) g/dL Hct 42.7 (35.3-44.9) % Plt Count 270 (140-400) K/mcL Neutrophils # 5.9 (1.6-8.9) K/mcL BMP 08/05/18 20:51 Sodium 137 Potassium 3.3 L Chloride 100 Carbon Dioxide 25 BUN 18 Creatinine 1.28 H Glucose 219 H Calcium 10.4 H Cardiac Enzymes 08/05/18 Range/Units 20:51 Troponin I < 0.03 (< 0.04) ng/mL Urine 08/05/18 Range/Units 21:13 Urine Color Yellow (Yellow) Urine Clarity Clear (Clear) Urine pH 6.0 (5.0-8.0) pH Units Ur Specific [place] 1.028 H (1.010-1.025) Urine Protein 30 H (Neg-Trace) mg/dL Urine Glucose (UA) Normal (Normal) mg/dL - EKG Data -: EKG Interpreted by Myself - EKG Data EKG comments: 08/06/18 04:50 Atrial fib/RVR - Impressions ITS Impressions Chest X-Ray 08/05/18 20:51 IMPRESSION: No evidence of acute process in the chest. D/ / Hugo Mccloud / Hugo Mccloud Interpreting Provider: Hugo Mccloud - Diagnostic Studies Chest x-ray Status: image reviewed by me (negative) - Assessment and Plan (1) Atrial fibrillation with RVR Current Visit: Yes Status: Acute Assessment and plan: 1. Currently rate controlled on Cardizem drip. 2. Correct hypokalemia. 3. Wean off Cardizem this morning and resume Coreg if HR remains controlled. 4. Contiinue heparin gtt. 5. Will trend troponins, EKG, and order ECHO. 6. Consult cardiology. 7. TSH WNL. (2) Chest pain Current Visit: Yes Status: Resolved Assessment and plan: 1. Atypical and related to tachyarrhythmia. 2. CP now resolved. 3. Trend troponins, EKG. 4. Monitor on telemtry. 5. Possible PE; will need CTA chest when/if renal funciton improves to baseline. If unable, then proceed with V/Q scan. BLE Dopplers ordered. 6. Heparin gtt as above. Qualifiers: Chest pain type: other chest pain Qualified Code(s): R07.89 - Other chest pain; R07.8 - Other chest pain (3) Acute kidney failure Current Visit: Yes Status: Acute Assessment and plan: 1. Stop diuretics. 2. IVF hydration. 3. Monitor renal function and I/O. 4. Consult nephrology if renal function fails to improve. Qualifiers: Acute renal failure type: unspecified Qualified Code(s): N17.9 - Acute kidney failure, unspecified (4) COPD (chronic obstructive pulmonary disease) Current Visit: Yes Status: Chronic Assessment and plan: 1. No acute process. 2. Monitor clinically and provide aerosols if necessary (Xopenex). 3. Oxygen as needed. Qualifiers: COPD type: emphysema Emphysema type: panlobular Qualified Code(s): J43.1 - Panlobular emphysema (5) DVT prophylaxis Current Visit: Yes Status: Acute Assessment and plan: 1. Heparin gtt as above.
[2018-08-06 06:56] LABS: Basophils # 0.1 K/mcL (0.0-0.2); Basophils % 0.6 %; Eosinophils # 0.2 K/mcL (0.0-0.6); Eosinophils % 2.2 %; Hematocrit 38.4 % (35.3-44.9); Immature Granulocytes % 0.3 % (0-4); Lymphocytes # 2.5 K/mcL (0.6-4.6); Lymphocytes % 27.1 %; Mean Corpuscular HGB Conc 32.3 g/dL (31.6-35.5); Mean Corpuscular Hemoglobin 30.5 pg (28.0-33.3); Mean Corpuscular Volume 94.3 fL (83.0-100.0); Mean Platelet Volume 10.4 fL (9.4-12.4); Monocytes # 0.9 K/mcL (0.0-1.3); Monocytes % 9.9 %; Neutrophils # 5.6 K/mcL (1.6-8.9); Platelet Count 227 K/mcL (140-400); Red Blood Count 4.07 M/mcL (3.82-4.97); Red Cell Distribution Width 13.7 % (11.5-14.5); Segmented Neutrophils % 59.9 %
[2018-08-06 07:04] LABS: Hemoglobin 12.4 g/dL (11.5-15.4)
[2018-08-06 07:50] LABS: Alanine Aminotransferase 10 Units/L (7-52); Albumin 3.6 g/dL (3.5-5.7); Albumin/Globulin Ratio 1.3 (1.1-2.2); Alkaline Phosphatase 51 Units/L (34-104); Aspartate Amino Transferase 10 Units/L (13-39); BUN/Creatinine Ratio 19 (6-26); Bilirubin,Total 0.2 mg/dL (0.3-1.0); Blood Urea Nitrogen 15 mg/dL (8-23); Calcium 9.3 mg/dL (8.6-10.3); Carbon Dioxide 25 mEq/L (23-29); Chloride 107 mEq/L (98-107); Cholesterol 133 mg/dL (< 200); Globulin 2.7 g/dL (2.4-3.5); Glucose 131 mg/dL (70-105); HDL Cholesterol 44 mg/dL (40-59); LDL Cholesterol,Calculated 71 mg/dL (0-99); Magnesium 2.5 mg/dL (1.6-2.6); Osmolality,Calculated 293 (280-300); Potassium 4.2 mEq/L (3.5-5.1); Sodium 140 mEq/L (136-145); Total Protein 6.3 g/dL (6.4-8.9); Triglycerides 91 mg/dL (< 150); eGFR For Non-African Americans > 60 (> 60)
[2018-08-06] MEDS ORDERED: Isovue-370 500 ML BOTTLE IVP ONE (09:31)
--- NOTE | 2018-08-06 09:54 | Event Note ---
Date of Encounter: 08/06/18 Time of Encounter: 09:53 Patient seen and examined at bedside. Patient states she feels better today. No palpitations or chest pressure. Denies shortness of breath Heart: Regular rate and rhythm, no murmurs, rubs, gallops, irregular rhythm not appreciated Lungs: Clear to auscultation bilaterally Assessment/plan: Paroxysmal A. fib: New-onset, appears to converted, Cardizem drip stopped and Coreg started. Currently on heparin drip, likely transition to oral anticoagulation later today. Echocardiogram pending. Cardiology consult pending. Patient did have elevated d-dimer and given her new onset A. fib will perform CT of the chest to rule out PE.
--- NOTE | 2018-08-06 11:35 | Event Note ---
Date of Encounter: 08/06/18 Time of Encounter: 11:30 - Cardiology Event Note Request from primary service to address patient and family questions. Presented with apparent new onset A. fib with RVR with conversion on Cardizem drip and now on beta estelle. Elevated d-dimer with CT negative for PE and bilateral venous duplex pending. On heparin drip and parker check in process regarding DOACs. Patient reports follows with cardiology (Dr. Martin) and on Plavix only with history of stenting. Has history of allergy to aspirin. All questions answered. Patient aware to watch for any bleeding with DOAC and plavix. Please consult if needed. Follow-up arranged.
[2018-08-06 12:14] VITALS: BP 109/70
--- NOTE | 2018-08-06 14:18 | Discharge Summary ---
Orders not resulted at time of discharge: Pending orders 08/06/18 06:00 ECG 12 lead ECG [ECG] AM 0600 Date of Encounter: 08/06/18 Time of Encounter: 14:17 - Discharge Diagnosis (1) Atrial fibrillation with RVR Priority: Primary Status: Acute (2) Chest pain Priority: Secondary Status: Resolved Qualifiers: Chest pain type: other chest pain Qualified Code(s): R07.89 - Other chest pain; R07.8 - Other chest pain (3) COPD (chronic obstructive pulmonary disease) Priority: Secondary Status: Chronic Qualifiers: COPD type: emphysema Emphysema type: panlobular Qualified Code(s): J43.1 - Panlobular emphysema (4) Acute kidney failure Priority: Secondary Status: Resolved Qualifiers: Acute renal failure type: unspecified Qualified Code(s): N17.9 - Acute kidney failure, unspecified Hospital course: Ms. Rodríguez is a 67 year old female with history of coronary disease who presented with palpitations and shortness of breath. She found to be in atrial fibrillation with rapid ventricular response. She placed on Cardizem drip and heparin infusion. She spontaneously converted to normal sinus rhythm. The Cardizem drip was stopped and she was put back on her home Coreg and remained stable throughout the day. She did have an elevated d-dimer so CTA and large by Doppler were performed which were negative for any thrombosis. Patient was placed on Eliquis for anticoagulation. Patient will be discharged home in stable condition. Discharge discussed with: patient, family - Time Spent with Patient Total time spent providing and/or coordinating discharge services: Time spent: D/C greater than 8 hours after Admission - Discharge Medications Prescriptions: New Apixaban [Eliquis] 5 mg PO BID #60 tablet Continue Clopidogrel [Plavix] 75 mg PO DAILY amLODIPine [Norvasc] 5 mg PO DAILY Carvedilol [Coreg] 1 tab PO BIDWM Losartan/Hydrochlorothiazide [Losartan-Hctz 50-12.5 mg Tab] 1 each PO DAILY Home Medications: Clopidogrel [Plavix] 75 mg PO DAILY 01/20/18 [History] amLODIPine [Norvasc] 5 mg PO DAILY 01/20/18 [History] Carvedilol [Coreg] 1 tab PO BIDWM 08/05/18 [History] Losartan/Hydrochlorothiazide [Losartan-Hctz 50-12.5 mg Tab] 1 each PO DAILY 08/05/18 [History] Apixaban [Eliquis] 5 mg PO BID #60 tablet 08/06/18 [Rx] Allergies/Adverse Reactions: Allergy/AdvReac Type Severity Reaction Status Date / Time aspirin Allergy Anaphylaxis Verified 08/05/18 20:42 lisinopril Allergy Cough Verified 08/05/18 20:42 Penicillins Allergy Anaphylaxis Verified 08/05/18 20:42 levofloxacin [From Levaquin] AdvReac See Verified 08/05/18 20:42 Comments Date of admission: 08/06/18 02:45 Primary care physician: Olayinka Faye MD Discharging clinician: Colten Lange Anticipated date of discharge: 08/06/18 - Constitutional Vitals: Temp Pulse Resp BP Pulse Ox 98.7 F 56 20 109/70 96 08/06/18 12:11 08/06/18 12:11 08/06/18 12:11 08/06/18 12:11 08/06/18 12:11 General appearance: Present: cooperative, A&O X 3, pleasant, answers questions appropriately Exam: . - Respiratory Respiratory exam: Present: CTAB. Absent: rales, rhonchi, wheezes - Cardiovascular Cardiovascular exam: Present: RRR. Absent: gallop, rubs, systolic murmur - Patient Status Disposition: Home, Self-Care Condition: Good Functional capacity at discharge: independent ambulation Overall status at discharge: patient is progressing back to baseline - Discharge Instructions Follow Up With: Olayinka Faye MD [Primary Care Provider] - (1 week) Additional Instructions: Please follow-up with your primary care provider within one week. Please follow-up with cardiology as scheduled. Please take Eliquis twice a day. Please resume your home medications. Please return for any new or worsening symptoms. - Diet and Activity Activity: increase activity as tolerated Diet: low salt diet
[2018-08-06] MEDS ORDERED: Apixaban 5 MG TABLET PO SCH (21:00)
--- NOTE | 2018-08-07 10:49 | Electrocardiograph Report ---
[address] [place], [place] [address] Test Date: 2018-08-05 Pat Name: Geena Rodríguez Department: [id number] Room: 2A63 Gender: F Icu Staff Nurse: : 1950 Requested By: Holden Alfonso Order Number: [id number] Reading MD: Maritza Nails Measurements Intervals [place] Rate: 143 P: [place]: QRS: -156 QRSD: 141 T: 22 QT: 336 QTc: 519 Interpretive Statements Atrial fibrillation Right bundle branch block ST depr, consider ischemia, inferior leads Electronically Signed On 08-07-2018 10:47:53 EDT by Maritza Nails
--- NOTE | 2018-08-07 10:49 | Electrocardiograph Report ---
[address] [address] Test Date: 2018-08-05 Pat Name: Geena Rodríguez Department: 104 Room: 2A63 Gender: F Field Service Tech: [id number] : 1950 Requested By: Wyatt Warren Order Number: [id number] Reading MD: Maritza Nials Measurements Intervals [place] Rate: 166 P: [place]: 0 QRS: 141 QRSD: 145 T: 21 QT: 286 QTc: 377 Interpretive Statements ATRIAL FIBRILLATION WITH RAPID VENTRICULAR RESPONSE RIGHT BUNDLE BRANCH BLOCK LEFT POSTERIOR FASCICULAR BLOCK Electronically Signed On 08-07-2018 10:47:42 EDT by Maritza Nails
--- NOTE | 2018-08-07 10:50 | Electrocardiograph Report ---
[address] [place], [place] [address] Test Date: 2018-08-06 Pat Name: Geena Rodríguez Department: 112 Room: 2A63 Gender: F Payroll Supervisor: : 1950 Requested By: Agustin Keita Order Number: [id number] Reading MD: Maritza Nails Measurements Intervals [place] Rate: 68 P: 76 MO: 155 QRS: 77 QRSD: 146 T: -5 QT: 423 QTc: 441 Interpretive Statements SINUS RHYTHM POSSIBLE LEFT ATRIAL ENLARGEMENT RIGHT BUNDLE BRANCH BLOCK Electronically Signed On 08-07-2018 10:49:10 EDT by Maritza Nails
== END 2018-08-06 16:00 | disposition home or self-care (01) | DRG 309 ==
LOC: 2ANU 20:38 → EMEROOARM 20:38 → 2ANU 08-06 01:11
PROVIDERS: ADMIT Family Medicine; ATTEND Family Medicine

== ENCOUNTER 2019-09-14 01:11 | Observation (INO) ==
[2019-09-14 01:32] LABS: Basophils # 0.1 K/mcL (0.0-0.2); Basophils % 0.6 %; Eosinophils # 0.2 K/mcL (0.0-0.6); Eosinophils % 2.5 %; Hemoglobin 14.6 g/dL (11.5-15.4); Immature Granulocytes % 0.2 % (0-4); Lymphocytes % 48.4 %; Mean Corpuscular HGB Conc 32.4 g/dL (31.6-35.5); Mean Corpuscular Hemoglobin 31.2 pg (28.0-33.3); Mean Corpuscular Volume 96.2 fL (83.0-100.0); Mean Platelet Volume 10.3 fL (9.4-12.4); Monocytes # 0.7 K/mcL (0.0-1.3); Monocytes % 8.6 %; Neutrophils # 3.3 K/mcL (1.6-8.9); Platelet Count 253 K/mcL (140-400); Red Blood Count 4.68 M/mcL (3.82-4.97); Segmented Neutrophils % 39.7 %; White Blood Count 8.3 K/mcL (4.3-11.1)
[2019-09-14 01:35] LABS: Prothrombin Time 11.9 Seconds (9.4-12.1)
[2019-09-14 01:52] LABS: BUN/Creatinine Ratio 17 (6-26); Blood Urea Nitrogen 18 mg/dL (8-23); Calcium 9.8 mg/dL (8.6-10.3); Carbon Dioxide 28 mEq/L (23-29); Chloride 102 mEq/L (98-107); Glucose 116 mg/dL (70-105); Osmolality,Calculated 289 (280-300); Potassium 3.3 mEq/L (3.5-5.1); Sodium 138 mEq/L (136-145); Troponin I < 0.03 ng/mL (< 0.04); eGFR For African Americans > 60 (> 60); eGFR For Non-African Americans 53 (> 60)
[2019-09-14] MEDS: DilTIAZem 50 MG/50 ML IV.SOLN IVC SCH ×2 (02:00→08:32)
[2019-09-14 02:06] LABS: Thyroid Stimulating Hormone 5.539 mcIU/mL (0.340-5.600)
[2019-09-14] MEDS ORDERED: Naloxone 0.4 MG/ML INJ IVP PRN (05:07)
[2019-09-14] MEDS ORDERED: Dextrose Gel 15 GM/37.5 ML TUBE PO PRN ×2 (06:34)
[2019-09-14] MEDS ORDERED: *HR* Dextrose 50 % in Water (Syg) 50 ML SYRINGE IVP PRN (06:34)
[2019-09-14] MEDS ORDERED: D5% in Water 1,000 ML IVC PRN (06:34)
[2019-09-14 07:58] LABS: Troponin I < 0.03 ng/mL (< 0.04)
[2019-09-14 08:32] LABS: Magnesium 1.9 mg/dL (1.6-2.6)
[2019-09-14] MEDS: Insulin LISPRO 300 UNITS/3 ML VIAL SQ SCH ×3 (08:45→16:30)
[2019-09-14] MEDS: carvediloL 6.25 MG TABLET PO SCH ×2 (08:45→16:44)
[2019-09-14] MEDS: Apixaban 5 MG TABLET PO SCH ×2 (08:45→19:43)
[2019-09-14] MEDS ORDERED: Magnesium Oxide 400 MG TABLET PO ONE (11:10)
[2019-09-14] MEDS: PrednisoLONE Acetate 1% Opth 5 ML BOTTLE LEFT EYE SCH (19:44)
[2019-09-14] MEDS: Ketorolac OPTH Soln 5 ML BOTTLE LEFT EYE SCH (19:44)
[2019-09-14] MEDS ORDERED: Insulin LISPRO 300 UNITS/3 ML VIAL SQ SCH (21:00)
[2019-09-15 02:38] LABS: BUN/Creatinine Ratio 24 (6-26); Blood Urea Nitrogen 20 mg/dL (8-23); Calcium 8.8 mg/dL (8.6-10.3); Carbon Dioxide 25 mEq/L (23-29); Chloride 107 mEq/L (98-107); Glucose 109 mg/dL (70-105); Magnesium 1.9 mg/dL (1.6-2.6); Osmolality,Calculated 289 (280-300); Potassium 4.2 mEq/L (3.5-5.1); Sodium 138 mEq/L (136-145); eGFR For African Americans > 60 (> 60); eGFR For Non-African Americans > 60 (> 60)
[2019-09-15 07:41] VITALS: BP 133/82
[2019-09-15] MEDS: Insulin LISPRO 300 UNITS/3 ML VIAL SQ SCH (07:57)
[2019-09-15] MEDS: carvediloL 6.25 MG TABLET PO SCH (08:38)
[2019-09-15] MEDS: Ketorolac OPTH Soln 5 ML BOTTLE LEFT EYE SCH (08:38)
[2019-09-15] MEDS: PrednisoLONE Acetate 1% Opth 5 ML BOTTLE LEFT EYE SCH (08:38)
[2019-09-15] MEDS: Apixaban 5 MG TABLET PO SCH (08:38)
== END 2019-09-15 10:25 | disposition home or self-care (01) ==
LOC: 2ANU 01:11 → EMEROOARM 01:11 → SUATTDRO 02:34 → 2ANU 03:03
PROVIDERS: ADMIT Family Medicine; ATTEND Internal Medicine

== ENCOUNTER 2020-12-24 17:17 | Observation (INO) ==
[2020-12-24] MEDS ORDERED: Nitroglycerin 0.4 MG TAB.SUBL SL PRN (17:50)
[2020-12-24] MEDS ORDERED: Isovue-370 500 ML BOTTLE IVP ONE (17:54)
[2020-12-24 17:55] LABS: Bacteria,Urine Few per hpf (None-Few); Bilirubin,Urine Negative (Negative); Blood,Urine Negative (Negative); Clarity,Urine Turbid (Clear); Color,Urine Yellow (Yellow); Glucose,Urine (UA) Normal (Normal); Ketones,Urine Negative (Negative); Leukocyte Esterase,Urine Trace (Negative); Mucus,Urine Few per lpf (None-Few); Nitrite,Urine Negative (Negative); PH,Urine 8.5 pH Units (5.0-8.0); Protein,Urine 70 mg/dL (Neg-Trace); RBC,Urine 0-3 per hpf (0-3); Specific Gravity,Urine 1.024 (1.010-1.025); Squamous Epithelial Cell,Urine Moderate per hpf (None-Few); Urobilinogen,Urine Normal (Normal)
[2020-12-24 17:56] LABS: Basophils # 0.1 K/mcL (0.0-0.2); Eosinophils # 0.1 K/mcL (0.0-0.6); Eosinophils % 1.3 %; Hematocrit 44.7 % (35.3-44.9); Hemoglobin 15.1 g/dL (11.5-15.4); Immature Granulocytes % 0.4 % (0-4); Lymphocytes # 3.1 K/mcL (0.6-4.6); Lymphocytes % 36.4 %; Mean Corpuscular HGB Conc 33.8 g/dL (31.6-35.5); Mean Corpuscular Hemoglobin 31.8 pg (28.0-33.3); Mean Corpuscular Volume 94.1 fL (83.0-100.0); Mean Platelet Volume 10.2 fL (9.4-12.4); Monocytes # 0.6 K/mcL (0.0-1.3); Monocytes % 7.4 %; Neutrophils # 4.5 K/mcL (1.6-8.9); Platelet Count 253 K/mcL (140-400); Red Blood Count 4.75 M/mcL (3.82-4.97); Red Cell Distribution Width 13.4 % (11.5-14.5); Segmented Neutrophils % 53.5 %; White Blood Count 8.4 K/mcL (4.3-11.1)
[2020-12-24 18:16] LABS: BUN/Creatinine Ratio 20 (6-26); Blood Urea Nitrogen 17 mg/dL (8-23); Calcium 9.8 mg/dL (8.6-10.3); Carbon Dioxide 37 mEq/L (23-29); Chloride 100 mEq/L (98-107); Glucose 133 mg/dL (70-105); Osmolality,Calculated 299 (280-300); Potassium 3.8 mEq/L (3.5-5.1); Sodium 143 mEq/L (136-145); Troponin I < 0.03 ng/mL (< 0.04); eGFR For African Americans > 60 (> 60); eGFR For Non-African Americans > 60 (> 60)
[2020-12-24] MEDS ORDERED: Ipratropium/Albuterol Neb 3 ML IH ONE (18:19)
[2020-12-24 18:41] LABS: Alanine Aminotransferase 20 Units/L (7-52); Albumin 4.2 g/dL (3.5-5.7); Albumin/Globulin Ratio 1.7 (1.1-2.2); Alkaline Phosphatase 59 Units/L (34-104); Aspartate Amino Transferase 18 Units/L (13-39); Bilirubin,Direct 0.1 mg/dL (0.0-0.2); Bilirubin,Indirect 0.4 mg/dL (0.0-1.0); Bilirubin,Total 0.5 mg/dL (0.3-1.0); Globulin 2.5 g/dL (2.4-3.5); Lipase 15 Units/L (11-82); Total Protein 6.7 g/dL (6.4-8.9)
[2020-12-24 19:40] LABS: Adenovirus Not Detected (Not Detect); Bordetella Pertussis Not Detected (Not Detect); Chlamydophila pneumoniae Not Detected (Not Detect); Coronavirus 229E Not Detected (Not Detect); Coronavirus HKU1 Not Detected (Not Detect); Coronavirus NL63 Not Detected (Not Detect); Coronavirus OC43 Not Detected (Not Detect); Human Metapneumovirus Not Detected (Not Detect); Human Rhinovirus/Enterovirus Not Detected (Not Detect); Influenza A Subtype 2009 H1 Not Detected (Not Detect); Influenza B Not Detected (Not Detect); Mycoplasma pneumoniae Not Detected (Not Detect); Parainfluenza Virus 1 Not Detected (Not Detect); Parainfluenza Virus 2 Not Detected (Not Detect); Parainfluenza Virus 3 Not Detected (Not Detect); Parainfluenza Virus 4 Not Detected (Not Detect); Respiratory Syncytial Virus Not Detected (Not Detect); SARS-CoV-2 Not Detected (Not Detect)
[2020-12-24] MEDS ORDERED: *HR* FentaNYL (PF) 100 MCG/2 ML VIAL IVP ONE ×2 (19:54→20:38)
[2020-12-25] MEDS ORDERED: Naloxone 0.4 MG/ML INJ IVP PRN (00:11)
[2020-12-25] MEDS ORDERED: Acetaminophen 325 MG TABLET PO PRN (00:11)
[2020-12-25] MEDS ORDERED: Ondansetron 4 MG/2 ML VIAL IVP PRN (00:11)
[2020-12-25] MEDS ORDERED: Perflutren Lipid Microsphere 1.3 ML in 0.9 % Sodium Chloride 8.7 ML IVP PRN (00:14)
[2020-12-25 01:32] LABS: Basophils # 0.1 K/mcL (0.0-0.2); Basophils % 0.6 %; Eosinophils # 0.1 K/mcL (0.0-0.6); Eosinophils % 0.9 %; Immature Granulocytes % 0.4 % (0-4); Lymphocytes # 2.9 K/mcL (0.6-4.6); Mean Corpuscular HGB Conc 33.5 g/dL (31.6-35.5); Mean Corpuscular Hemoglobin 31.6 pg (28.0-33.3); Mean Corpuscular Volume 94.3 fL (83.0-100.0); Mean Platelet Volume 10.5 fL (9.4-12.4); Monocytes # 0.9 K/mcL (0.0-1.3); Monocytes % 8.9 %; Neutrophils # 6.6 K/mcL (1.6-8.9); Platelet Count 206 K/mcL (140-400); Red Blood Count 4.24 M/mcL (3.82-4.97); Red Cell Distribution Width 13.5 % (11.5-14.5); Segmented Neutrophils % 62.2 %; White Blood Count 10.6 K/mcL (4.3-11.1)
[2020-12-25 01:38] LABS: Hemoglobin 13.4 g/dL (11.5-15.4)
[2020-12-25 01:56] LABS: BUN/Creatinine Ratio 19 (6-26); Blood Urea Nitrogen 15 mg/dL (8-23); Calcium 8.9 mg/dL (8.6-10.3); Carbon Dioxide 30 mEq/L (23-29); Chloride 102 mEq/L (98-107); Glucose 197 mg/dL (70-105); Magnesium 1.8 mg/dL (1.6-2.6); Osmolality,Calculated 294 (280-300); Potassium 3.2 mEq/L (3.5-5.1); Sodium 139 mEq/L (136-145); eGFR For African Americans > 60 (> 60); eGFR For Non-African Americans > 60 (> 60)
[2020-12-25 01:57] LABS: INR 1.1
[2020-12-25 02:05] LABS: Thyroid Stimulating Hormone 2.048 mcIU/mL (0.340-5.600)
[2020-12-25] MEDS ORDERED: Regadenoson 0.4 MG/5 ML SYRINGE IVP ONE (06:25)
[2020-12-25 12:13] VITALS: PULSE 59
[2020-12-25] MEDS ORDERED: Apixaban 5 MG TABLET PO SCH (12:34)
[2020-12-25] MEDS ORDERED: Potassium Chloride Elixir 20 MEQ/15 ML UDC PO ONE (12:38)
[2020-12-25] MEDS ORDERED: amLODIPine 5 MG TABLET PO SCH (12:45)
[2020-12-25 15:42] VITALS: BP 127/82; TEMP 98.4; O2SAT 96
[2020-12-25] MEDS: carvediloL 6.25 MG TABLET PO SCH ×2 (17:10→17:15)
[2020-12-25 18:07] LABS: BUN/Creatinine Ratio 18 (6-26); Blood Urea Nitrogen 14 mg/dL (8-23); Calcium 9.3 mg/dL (8.6-10.3); Carbon Dioxide 28 mEq/L (23-29); Chloride 104 mEq/L (98-107); Glucose 129 mg/dL (70-105); Osmolality,Calculated 288 (280-300); Potassium 4.8 mEq/L (3.5-5.1); Sodium 138 mEq/L (136-145); eGFR For African Americans > 60 (> 60); eGFR For Non-African Americans > 60 (> 60)
[2020-12-26] MEDS ORDERED: Isosorbide MONOnitrate (24 HR) 30 MG TAB.ER.24H PO SCH (09:00)
== END 2020-12-25 18:50 | disposition home or self-care (01) ==
LOC: EMEROOARM 17:17 → CDU 17:17
PROVIDERS: ADMIT Internal Medicine; ATTEND Internal Medicine

== ENCOUNTER 2021-12-18 04:04 | Observation (INO) ==
[2021-12-18] MEDS ORDERED: 0.9 % Sodium Chloride 500 ML IVC ONE (05:10)
[2021-12-18 05:22] LABS: Basophils # 0.1 K/mcL (0.0-0.2); Basophils % 0.8 %; Eosinophils # 0.3 K/mcL (0.0-0.6); Eosinophils % 3.2 %; Hematocrit 44.7 % (35.3-44.9); Hemoglobin 14.8 g/dL (11.5-15.4); Immature Granulocytes % 0.4 % (0-4); Lymphocytes # 3.2 K/mcL (0.6-4.6); Lymphocytes % 37.3 %; Mean Corpuscular HGB Conc 33.1 g/dL (31.6-35.5); Mean Corpuscular Hemoglobin 31.6 pg (28.0-33.3); Mean Corpuscular Volume 95.3 fL (83.0-100.0); Mean Platelet Volume 10.4 fL (9.4-12.4); Monocytes # 0.8 K/mcL (0.0-1.3); Neutrophils # 4.1 K/mcL (1.6-8.9); Platelet Count 223 K/mcL (140-400); Red Blood Count 4.69 M/mcL (3.82-4.97); Segmented Neutrophils % 48.3 %; White Blood Count 8.4 K/mcL (4.3-11.1)
[2021-12-18 05:43] LABS: BUN/Creatinine Ratio 22 (6-26); Blood Urea Nitrogen 21 mg/dL (8-23); Calcium 9.2 mg/dL (8.6-10.3); Carbon Dioxide 29 mEq/L (23-29); Chloride 100 mEq/L (98-107); Glucose 134 mg/dL (70-105); Magnesium 1.7 mg/dL (1.6-2.6); Osmolality,Calculated 287 (280-300); Potassium 3.7 mEq/L (3.5-5.1); Sodium 136 mEq/L (136-145)
[2021-12-18 05:44] LABS: Troponin I < 0.03 ng/mL (< 0.04)
[2021-12-18 05:58] LABS: Thyroid Stimulating Hormone 4.477 mcIU/mL (0.340-5.600)
[2021-12-18] MEDS ORDERED: Iopamidol - 370 500 ML MLS IVP ONE (06:04)
[2021-12-18] MEDS: DilTIAZem 50 MG/50 ML IV.SOLN IVC SCH ×3 (06:19→16:52)
[2021-12-18] MEDS ORDERED: Levalbuterol Neb 0.63 MG/3 ML IH PRN (09:51)
[2021-12-18] MEDS ORDERED: Melatonin 3 MG TABLET PO PRN (10:04)
[2021-12-18] MEDS ORDERED: Naloxone 0.4 MG/ML INJ IVP PRN (10:04)
[2021-12-18] MEDS ORDERED: Acetaminophen 325 MG TABLET PO PRN (10:04)
[2021-12-18] MEDS ORDERED: Ondansetron 4 MG/2 ML VIAL IVP PRN (10:04)
[2021-12-18] MEDS ORDERED: Dextrose Gel 15 GM/37.5 ML TUBE PO PRN ×2 (11:21)
[2021-12-18] MEDS ORDERED: D5% in Water 1,000 ML IVC PRN (11:21)
[2021-12-18] MEDS ORDERED: *HR* Dextrose 50 % in Water (Syg) 50 ML SYRINGE IVP PRN (11:21)
[2021-12-18] MEDS: Insulin LISPRO 300 UNITS/3 ML VIAL SUBQ SCH ×2 (12:41→16:50)
[2021-12-18] MEDS: predniSONE 20 MG TABLET PO SCH (12:49)
[2021-12-18] MEDS: Magnesium Oxide 400 MG TABLET PO SCH (12:49)
[2021-12-18] MEDS: carvediloL 6.25 MG TABLET PO SCH (16:51)
[2021-12-18] MEDS: Apixaban 5 MG TABLET PO SCH (22:52)
[2021-12-18] MEDS: Gabapentin 300 MG CAPSULE PO SCH (22:52)
[2021-12-19 03:06] LABS: Estimated Average Glucose 143 mg/dl; Hemoglobin A1C 6.6 %
[2021-12-19 03:25] LABS: Calcium 9.1 mg/dL (8.6-10.3); Chol/HDL Ratio 2.7 (0-4.9); Magnesium 2.1 mg/dL (1.6-2.6); Potassium 4.7 mEq/L (3.5-5.1)
[2021-12-19 07:17] VITALS: PULSE 55
[2021-12-19] MEDS: Insulin LISPRO 300 UNITS/3 ML VIAL SUBQ SCH ×2 (07:32→11:31)
[2021-12-19] MEDS: Apixaban 5 MG TABLET PO SCH (08:39)
[2021-12-19] MEDS: Magnesium Oxide 400 MG TABLET PO SCH (08:39)
[2021-12-19] MEDS: Gabapentin 300 MG CAPSULE PO SCH (08:39)
[2021-12-19] MEDS: carvediloL 6.25 MG TABLET PO SCH (08:40)
[2021-12-19] MEDS: predniSONE 20 MG TABLET PO SCH (08:40)
[2021-12-19 10:41] LABS: Adenovirus Not Detected (Not Detect); Bordetella Pertussis Not Detected (Not Detect); Chlamydophila pneumoniae Not Detected (Not Detect); Coronavirus 229E Not Detected (Not Detect); Coronavirus HKU1 Not Detected (Not Detect); Coronavirus NL63 Not Detected (Not Detect); Coronavirus OC43 Not Detected (Not Detect); Human Metapneumovirus Not Detected (Not Detect); Human Rhinovirus/Enterovirus Not Detected (Not Detect); Influenza A Subtype 2009 H1 Not Detected (Not Detect); Influenza B Not Detected (Not Detect); Mycoplasma pneumoniae Not Detected (Not Detect); Parainfluenza Virus 1 Not Detected (Not Detect); Parainfluenza Virus 2 Not Detected (Not Detect); Parainfluenza Virus 3 Not Detected (Not Detect); Parainfluenza Virus 4 Not Detected (Not Detect); Respiratory Syncytial Virus Not Detected (Not Detect); SARS-CoV-2 Not Detected (Not Detect)
[2021-12-19 11:09] VITALS: BP 128/73; TEMP 98
[2021-12-19 13:36] VITALS: O2SAT 92
[2021-12-19] MEDS ORDERED: carvediloL 6.25 MG TABLET PO SCH (17:00)
== END 2021-12-19 13:49 | disposition home or self-care (01) ==
LOC: 2ANU 04:04 → EMEROOARM 04:04 → SUATTDRO 11:24 → 2ANU 12:12
PROVIDERS: ADMIT Internal Medicine; ATTEND Internal Medicine